=== PATIENT | female | born 1975 | race Caucasian/White ===

== ENCOUNTER 2018-09-29 12:30 | Day surgery (SDC) | payer BC ==
[2018-09-25 10:53] LABS: BILIRUBIN,URINE NEGATIVE (NEGATIVE); BLOOD, URINE NEGATIVE (NEGATIVE); CLARITY/URINE CLEAR (CLEAR); COLOR,URINE YELLOW (YELLOW); GLUCOSE,URINE NEGATIVE (NEGATIVE); KETONES,URINE NEGATIVE (NEGATIVE); LEUKOCYTE ESTERASE ,URINE NEGATIVE (NEGATIVE); NITRITE, URINE NEGATIVE (NEGATIVE); PROTEIN URINE NEGATIVE (NEGATIVE); UROBILINOGEN,URINE 0.2 (0.2-1.0)
[2018-09-25 10:56] LABS: BASOPHILS % (AUTO) 0.6 % (0.0-2.0); EOSINOPHILS # (AUTO) 0.1 K/uL (0.0-0.4); EOSINOPHILS % (AUTO) 1.4 % (0.0-4.0); HEMATOCRIT 45.2 % (36-48); LYMPHOCYTES # (AUTO) 1.7 K/uL (1.0-5.5); MEAN CORPUSCULAR HEMOGLOBIN 28 pg (27-31); MEAN CORPUSCULAR HGB CONC 33 % (32-36); MEAN CORPUSCULAR VOLUME 86 fL (79.0-98.0); MONOCYTES # (AUTO) 0.4 K/uL (0.0-1.0); MONOCYTES % (AUTO) 7.3 % (1.7-9.3); NEUTROPHILS # (AUTO) 3.6 K/uL (1.8-7.7); NEUTROPHILS % (AUTO) 60.7 % (40.0-70.0); PLATELET COUNT (AUTO) 241 K/uL (130-430); RED BLOOD CELL COUNT(AUTO) 5.29 MIL/uL (4.2-6.2); RED CELL DISTRIBUTION WIDTH 13.3 % (9.0-15.0); WHITE BLOOD COUNT (AUTO) 5.8 K/uL (4.8-10.8)
[2018-09-25 11:49] LABS: CALCIUM 8.9 mg/dL (8.4-11.0); CREATININE 0.56 mg/dL (0.55-1.30); POTASSIUM 4.1 mmol/L (3.5-5.1)
[~2018-09-29] VITALS: Ht 149.9 cm; Wt 82.6 kg
[2018-09-29] MEDS ORDERED: NS IRRIG SOLN 1000 ML IR ONE (14:30)
[2018-09-29] MEDS ORDERED: BUPIVACAINE /PF 0.25% 30 ML VIAL INJ ONE (14:30)
[2018-09-29] MEDS ORDERED: LR 1,000 ML IV.SOLN IV ONE (14:30)
[2018-09-29] MEDS ORDERED: SEVOFLURANE 15 MIN GAS INH ONE (14:30)
[2018-09-29] MEDS ORDERED: CEFAZOLIN 2 GM IVPB PREMIX 50 ML IV ONE (14:30)
[2018-09-29] MEDS ORDERED: ROPIVACAINE HCL/PF 5 MG/ML 0.5% 30 ML VIAL INJ ONE (14:30)
[2018-09-29] MEDS ORDERED: MIDAZOLAM HCL 5 MG/5 ML VIAL IVP ONE (14:30)
[2018-09-29] MEDS ORDERED: ONDANSETRON HCL 4 MG/2 ML VIAL IVP ONE (14:30)
[2018-09-29] MEDS ORDERED: ROPIVACAINE HCL/PF 0.2% (NAROPIN) 200 ML PLAST..BAG EP ONE (14:30)
[2018-09-29] MEDS ORDERED: fentaNYL CITRATE 250 MCG/5 ML AMP IV ONE (14:30)
[2018-09-29] MEDS ORDERED: NEOSTIGMINE METHYLSULFATE 1 MG/ML, 10 ML VIAL IVP ONE (14:30)
[2018-09-29] MEDS ORDERED: PROPOFOL 200MG/ 20ML VIAL (DIPRIVAN) IV ONE (14:30)
[2018-09-29] MEDS ORDERED: ROCURONIUM BROMIDE 10 MG/ML (ZEMURON) IV ONE (14:30)
[2018-09-29] MEDS ORDERED: NS 1000 ML IV.SOLN IV ONE (14:30)
[2018-09-29] MEDS ORDERED: GLYCOPYRROLATE 0.2 MG/ML VIAL IJ ONE (14:30)
[2018-09-29] MEDS ORDERED: LR 1,000 ML IV SCH (15:46)
[2018-09-29] MEDS ORDERED: MORPHINE 4 MG/ML INJ. SYRINGE IVP PRN (16:00)
[2018-09-29] MEDS ORDERED: HYDROmorphone 2 MG TAB PO PRN (16:30)
[2018-09-29] MEDS ORDERED: PROMETHAZINE HCL 25 MG/ML AMP IM PRN (16:30)
[2018-09-29] MEDS ORDERED: ONDANSETRON HCL 4 MG/2 ML VIAL IVP PRN (16:30)
[2018-09-29] MEDS ORDERED: OXYCODONE/ACETAMINOPHEN 5-325 TABLET PO PRN (16:30)
[2018-09-29 17:00] VITALS: BP_SYST 138
[2018-09-29] MEDS: MORPHINE 4 MG/ML INJ. SYRINGE IVP PRN ×2 (17:29→17:44)
[2018-09-29] MEDS ORDERED: MORPHINE 4 MG/ML INJ. SYRINGE ONE (17:32)
[2018-09-29] MEDS: METOCLOPRAMIDE HCL 10 MG/2 ML VIAL IVP PRN (18:10)
[2018-09-29] MEDS ORDERED: METOCLOPRAMIDE HCL 10 MG/2 ML VIAL ONE (18:14)
== END 2018-09-29 23:00 | disposition home or self-care (01) ==
LOC: SDS 12:30
PROVIDERS: ATTEND Obstetrics & Gynecology
DX: D25.9 Leiomyoma of uterus, unspecified (principal); Z98.890 Other specified postprocedural states; Z79.899 Other long term (current) drug therapy; Z83.3 Family history of diabetes mellitus; Z88.8 Allergy status to other drugs, medicaments and biological substances; E66.01 Morbid (severe) obesity due to excess calories
CPT/HCPCS: 36415; 80048; 81003; 84703; 85025; 86886; 86900; 86901; 88307; C1727; E0190; J0690; J2250; J2270; J2405; J2704; J2710; J2765; J3010; J3490; J7030; J7120